=== PATIENT | female | born 1990 ===

== ENCOUNTER 2023-12-14 09:25 | Outpatient (CLI) | payer OTHER, SELFPAY ==
--- NOTE | ~2023-12-14 | US_ITS ---
EXAMINATION: US pelvic complete DATE: 12/14/2023 10:32 INDICATION: Missing IUD strings Comparison:No prior studies for comparison. TECHNIQUE: Multiple transabdominal and endovaginal sonographic images of the pelvis performed. FINDINGS: The uterus measures 7 x 3.6 x 4.5 cm. IUD is present in the endometrium. The endometrial co mplex measures 3 mm. The right ovary measures 3.4 x 2 x 3.3 cm and the left ovary measures 3.3 x 2.2 x 1.6 cm. There are small follicles in each ovary. Normal doppler signal in both ovaries. There is no free fluid in the pelvis. There are no abnormal masses seen on either side. IMPRESSION: 1. Unremarkable pelvic ultrasound. Reviewed, dictated and finalized at location B.
== END 2023-12-14 09:26 ==
PROVIDERS: PCP Emergency Medicine; Visit Provider Emergency Medicine
DX: T83.89XA Other specified complication of genitourinary prosthetic devices, implants and grafts, initial encounter (principal)
CPT/HCPCS: 76856